=== PATIENT | male | born 1975 | race African-American/Black ===

== ENCOUNTER 2023-05-04 09:37 | Emergency (ER) | payer OTHER ==
[2023-05-04 10:09] LABS: BASOPHILS # (AUTO) 0.1 10^3/uL (0.0-0.1); BASOPHILS % (AUTO) 1.3 %; EOSINOPHILS # (AUTO) 0.4 10^3/uL (0.0-0.7); EOSINOPHILS % (AUTO) 10.8 %; HCT - HEMATOCRIT 44.2 % (42.0-52.0); HGB - HEMOGLOBIN 13.9 g/dL (14.0-18.0); LYMPHOCYTES # (AUTO) 1.6 10^3/uL (1.5-3.5); MEAN CORPUSCULAR HEMOGLOBIN 26.5 pg (27.0-31.0); MEAN CORPUSCULAR HGB CONC 31.4 g/dL (32.0-36.0); MEAN CORPUSCULAR VOLUME 84.2 fL (80.0-94.0); MEAN PLATELET VOLUME 11.2 fL (7.4-11.4); MONOCYTES # (AUTO) 0.4 10^3/uL (0.0-1.0); MONOCYTES % (AUTO) 9.5 %; NEUTROPHILS # (AUTO) 1.6 10^3/uL (1.5-6.6); NEUTROPHILS % (AUTO) 39.1 %; PLT - PLATELET COUNT 180 10^3/uL (130-450); RED BLOOD COUNT 5.25 10^6/uL (4.70-6.10); RED CELL DISTRIBUTION WIDTH 14.2 % (12.0-15.0)
[2023-05-04 10:22] LABS: ALBUMIN 4.4 g/dL (3.2-5.5); ALBUMIN/GLOBULIN RATIO 1.5 (1.0-2.2); BILIRUBIN,TOTAL 0.9 mg/dL (0.2-1.0); CALCIUM 9.3 mg/dL (8.5-10.3); CREATININE 1.3 mg/dL (0.6-1.3); POTASSIUM 3.6 mmol/L (3.5-4.5); TOTAL PROTEIN 7.4 g/dL (6.4-8.9)
--- NOTE | 2023-05-04 10:24 | XRAY Report ---
PROCEDURE: Chest 1V INDICATIONS: chest pain TECHNIQUE: One view of the chest was acquired. COMPARISON: None. FINDINGS: Surgical changes and devices: None. Lungs and pleura: No pleural effusions or pneumothorax. Lungs are clear. Mediastinum: Mediastinal contours appear normal. Heart size is normal. Bones and chest wall: No suspicious bony lesions. Overlying soft tissues appear unremarkable. IMPRESSION: No acute cardiopulmonary process. Reviewed by: Naga Jama MD on 05/04/2023 10:23 AM [facility] Approved by: Naga Jama MD on 05/04/2023 10:23 AM [facility] Station ID: [id number]
[2023-05-04 10:29] LABS: TROPONIN I HIGH SENSITIVITY 2.3 ng/L (2.3-19.7)
--- NOTE | 2023-05-04 11:54 | ED Physician Documentation ---
PD HPI CHEST PAIN - Stated complaint Stated Complaint: CHEST PX - Chief complaint Chief Complaint: Cardiac - Additional information Additional information: 47-year-old male with no significant past medical history presents emergency department for what he describes as possible fluttering in his chest. Patient says that around 11:00 at night while he was in bed resting trying to fall asleep he felt what he describes as possible a muscle spasm in his left chest or fluttering sensation to his left chest. He said it then turned into what he describes as a pressure sensation. He said that he has had this happen a couple times since then but the symptoms fully resolve in between each episode only lasts for about 20 to 30 seconds. He has no dizziness no vision changes no shortness of breath no other concerning symptoms. He has no family history of cardiac disease he says his only past history is that he takes omeprazole for stomach ulcers. He said that he does have a history of anxiety but he feels like overall it has gotten better over the years. PD PAST MEDICAL HISTORY - Past Medical History Past Medical History: Yes GI: GERD - Past Surgical History Past Surgical History: Yes General: Other - Present Medications Home Medications: Ambulatory Orders Medication Instructions Recorded Confirmed Esomeprazole Magnesium 20 mg PO DAILY 05/04/23 05/04/23 - Allergies Allergies/Adverse Reactions: Allergies Allergy/AdvReac Type Severity Reaction Status Date / Time naproxen AdvReac Emesis Verified 05/04/23 09:53 - Social History Does the pt smoke?: No Smoking Status: Never smoker Does the pt drink ETOH?: No Does the pt have substance abuse?: No - Immunizations Immunizations are current?: Yes - POLST Patient has POLST: No PD ED PE NORMAL - Vitals Vital signs reviewed: Yes - General General: Alert and oriented X 3 - HEENT HEENT: Atraumatic, PERRL - Neck Neck: Supple, no meningeal sign, No JVD - Cardiac Cardiac: RRR, No murmur, Strong equal pulses - Respiratory Respiratory: No respiratory distress, Clear bilaterally - Derm Derm: Normal color, Warm and dry, No rash - Extremities Extremities: No deformity, No edema, No calf tenderness / cord - Neuro Neuro: Alert and oriented X 3 Results - Vitals Vitals: Vital Signs - 24 hr 05/04/23 05/04/23 09:47 10:19 Temperature 36.0 C L Heart Rate 73 Respiratory 16 Rate Blood Pressure 151/87 H Blood Pressure 143/82 H [Left] O2 Saturation 99 Oxygen O2 Source Room air - EKG (time done) 0947 EKG releavant findings:: EKG personally interpreted by author of this note. Relevant findings are: Rate: Rate (enter#) (67) Rhythm: NSR [place]: Normal Intervals: Normal [place] QRS: Normal Ischemia: Normal ST segments Other comments: Other comments (early repolarization) - Labs Labs: Laboratory Tests 05/04/23 05/04/23 10:04 10:04 WBC 4.0 L RBC 5.25 Hgb 13.9 L Hct 44.2 MCV 84.2 MCH 26.5 L MCHC 31.4 L RDW 14.2 Plt Count 180 MPV 11.2 Neut # (Auto) 1.6 Lymph # (Auto) 1.6 [place] # (Auto) 0.4 Eos # (Auto) 0.4 Baso # (Auto) 0.1 Absolute Nucleated RBC 0.00 Nucleated RBC % 0.0 Sodium 138 Potassium 3.6 Chloride 103 Carbon Dioxide 30 Anion Gap 5.0 L BUN 14 Creatinine 1.3 Estimated GFR (MDRD) 60 L Glucose 91 Calcium 9.3 Total Bilirubin 0.9 AST 26 ALT 19 Alkaline Phosphatase 53 Troponin I High Sens 2.3 Total Protein 7.4 Albumin 4.4 Globulin 3.0 Albumin/Globulin Ratio 1.5 Lipase 77 - Rads (name of study) Chest x-ray Relevant Findings:: Final report received, EMP independent interpretation of test (No acute cardiopulmonary process) PD Medical Decision Making - ED course ED course: Exam without evidence of volume overload so doubt heart failure. EKG without signs of active ischemia. Given the timing of pain to ER presentation, single troponin was negative so doubt NSTEMI. Presentation not consistent with acute PE (PERC negative),pneumothorax (not visualized on chest xr), thoracic aortic dissection, pericarditis, tamponade, pneumonia (no infectious symptoms, clear chest xr), myocarditis (no recent illness, neg trop). HEART score:0 so plan to discharge patient home with PCP follow up. Departure - Departure Disposition: Home, Self Care Clinical Impression: Chest wall pain, Chest pain at rest Instructions: ED Chest Pain Atypical Unkn Cause Comments: Thank you for trusting us with your care. We have completed x-rays, chest x- ray, and labs and nothing reveals that you are having any sort of cardiac abnormalities at this time. Please follow-up with your primary care provider about your ER visit for further evaluation of the symptoms you are experiencing. Please come back to the emergency department if your chest pain gets worse, if you start to experience any shortness of breath, dizziness nausea vomiting or any other concerning symptoms for reevaluation. Forms: PCP List
[2023-05-04 12:55] VITALS: BP 128/78; O2SAT 100
[2023-05-04] MEDS ORDERED: GI COCKTAIL 120 ML BOTTLE PO SCH (13:00)
== END 2023-05-04 12:40 | disposition home or self-care (01) ==
LOC: ED 09:37
DX: R07.89 Other chest pain (principal)
CPT/HCPCS: 36415; 80053; 83690; 84484; 85025; 93005; 99283; 99284

== ENCOUNTER 2023-08-02 07:47 | Outpatient (CLI) | payer OTHER ==
--- NOTE | 2023-08-02 11:08 | MRI Report ---
PROCEDURE: Lumbar Spine WO INDICATIONS: LOW BACK PAIN TECHNIQUE: Noncontrast sagittal T1 spin echo and T2 fast echo, sagittal STIR, axial T1 and T2 fast spin echo thr ough the lumbar spine. In cases with scoliosis, additional coronal T2 fast spin echo may be performe d. COMPARISON: Chest radiograph 05/04/2023. FINDINGS: Image quality: Excellent. Alignment and Curvature: There is normal bony alignment. Bone Marrow: Marrow is of normal overall signal. No acute vertebral body compression fractures. Spinal Cord: Conus medullaris terminates at the L1 level. Visualized cord demonstrates normal signa l and size. Paraspinous Soft Tissues: No paravertebral masses. T12-L1: Normal in appearance. L1-L2: Normal in appearance. L2-L3: Broad-based disc bulge. L3-L4: Mild disc desiccation. Broad-based disc bulge, tiny facet effusions. L4-L5: Mild disc desiccation, broad-based disc bulge, ligamentum flavum hypertrophy, facet hypertro phy, small facet effusions. Mild bilateral neural foraminal narrowing. L5-S1: Mild disc desiccation, broad-based disc bulge, ligamentum flavum hypertrophy, left greater t ulrich right with bilateral facet hypertrophy and small effusions. IMPRESSION: Lower lumbar degenerative disc disease. Of note: No significant spinal canal narrowing. Mild bilateral neural foraminal narrowing at L4-5. Reviewed by: Demarco Wetzel MD on 08/02/2023 11:07 AM PDT Approved by: Demarco Wetzel MD on 08/02/2023 11:07 AM PDT Station ID: [id number]
== END 2023-08-02 07:48 | disposition home or self-care (01) ==
LOC: DI 07:47
PROVIDERS: ATTEND Physician Assistant
DX: M51.36 Other intervertebral disc degeneration, lumbar region (principal); M48.061 Spinal stenosis, lumbar region without neurogenic claudication; M51.37 Other intervertebral disc degeneration, lumbosacral region; M47.816 Spondylosis without myelopathy or radiculopathy, lumbar region; M47.817 Spondylosis without myelopathy or radiculopathy, lumbosacral region